=== PATIENT | male | born 1990 | race Caucasian/White ===

== ENCOUNTER → 2024-07-09 | Outpatient (REF) | payer BC ==
[2024-07-09 17:22] LABS: BASO % 0.5 % (0.0-1.0); EOS % 0.6 % (0.0-3.0); HEMOGLOBIN 13.5 g/dl (13.5-17.5); LYMPH # 3.5 10^3/uL (1.5-5.0); LYMPH % 56.1 % (24.0-44.0); MEAN CORPUSCULAR HEMOGLOBIN 28.1 pg (27.0-33.0); MEAN CORPUSCULAR HGB CONC 32.1 g/dl (32.0-36.5); MEAN CORPUSCULAR VOLUME 87.5 fl (80.0-96.0); MONO # 0.3 10^3/uL (0.0-0.8); MONO % 5.1 % (2.0-8.0); NEUTROPHILS # 2.4 10^3/uL (1.5-8.5); NEUTROPHILS % 37.5 % (36.0-66.0); PLATELET COUNT, AUTOMATED 233 10^3/uL (150-450); WHITE BLOOD COUNT 6.3 10^3/uL (4.0-10.0)
[2024-07-09 17:31] LABS: ALBUMIN 4.3 G/DL (3.2-5.2); ALKALINE PHOSPHATASE 50 U/L (46-116); ALT/SGPT 31 U/L (7.0-40); AST/SGOT 16 U/L (<34); BILIRUBIN,TOTAL 0.3 MG/DL (0.3-1.2); BLOOD UREA NITROGEN 12 MG/DL (9-23); CALCIUM LEVEL 9.9 MG/DL (8.5-10.1); CARBON DIOXIDE LEVEL 30 MMOL/L (20-31); CHLORIDE LEVEL 104 MMOL/L (98-107); CHOLESTEROL LEVEL 184 MG/DL (<200); CHOLESTEROL RISK RATIO 4.36 (<5); CREATININE FOR GFR 1.31 MG/DL (0.70-1.30); GLOMERULAR FILTRATION RATE > 60.0 (>60); GLUCOSE, FASTING 87 MG/DL (60-100); HDL CHOLESTEROL 42.2 MG/DL (>40); LDL CHOLESTEROL 112.2 MG/DL (<100); NON-HDL-C 141.8 MG/DL; POTASSIUM SERUM 4.3 MMOL/L (3.5-5.1); SODIUM LEVEL 137 MMOL/L (136-145); TOTAL PROTEIN 7.7 G/DL (5.7-8.2); TRIGLYCERIDES LEVEL 148 MG/DL (<150)
== END ==
LOC: M SFHCLERA 11:43
PROVIDERS: ATTEND Physician Assistant
DX: Z13.220 Encounter for screening for lipoid disorders (principal); M25.511 Pain in right shoulder

== ENCOUNTER → 2024-08-06 | Outpatient (CLI) | payer BC | LOC: M SOG 08-05 15:37 | PROVIDERS: ATTEND Orthopaedic Surgery | DX: M25.562 Pain in left knee (principal) ==

== ENCOUNTER → 2024-08-12 | Outpatient (CLI) | payer BC | LOC: M SOG 08:24 | PROVIDERS: ATTEND Orthopaedic Surgery | DX: M25.511 Pain in right shoulder (principal) ==

== ENCOUNTER → 2024-09-12 | Outpatient (CLI) | payer BC | LOC: M PLARAD 08:12 | PROVIDERS: ATTEND Orthopaedic Surgery | DX: M75.41 Impingement syndrome of right shoulder (principal); M76.52 Patellar tendinitis, left knee; M19.011 Primary osteoarthritis, right shoulder; M67.52 Plica syndrome, left knee ==